=== PATIENT | female | born 1945 | race Caucasian/White ===

== ENCOUNTER 2019-03-17 07:07 | Day surgery (SDC) | payer MEDICARE, BC, SELFPAY ==
--- NOTE | 2019-03-16 11:51 | W.PIPPEYE ---
History of Present Illness Chief Complaint: Progressive decreased vision, right eye Narrative: Patient is a 73-year-old lady with history of open-angle glaucoma who has previously undergone corneal refractive surgery 20 years ago. She presents with complaints of progressive decreased vision in both eyes at both distance and near, right eye worse than left. She notes the right eye is significantly more cloudy than the left and has difficulty driving at night due to glare. On examination she was noted to have bilateral nuclear and cortical cataracts. The option of cataract surgery was offered to patient and she wished to proceed. In addition, the option of a trabecular micro-bypass stent at the time of cataract surgery if the anatomy is favorable was offered to the patient and she wished to proceed with this as well. NOTE: The Chief Complaint, HPI, Past Medical History, Past Surgical History, Family History, Social History, Medications, and complete Ophthalmic Exam with detailed Assessment and Plan have already been documented in the patient's outpatient ophthalmic record and are not covered again in detail here. PFSH Medical History Allergic rhinitis (Acute) Aneurysm (Acute) Back pain (Acute) Detached retina (Acute) Eczema (Acute) HLD (hyperlipidemia) (Acute) History of knee sprain (Acute) Myofascial pain syndrome (Acute) Osteopenia (Acute) RLS (restless legs syndrome) (Acute) Recurrent UTI (urinary tract infection) (Acute) TMJ (temporomandibular joint disorder) (Acute) Anxiety (Chronic) Depression (Chronic) GERD (gastroesophageal reflux disease) (Chronic) History of hysterectomy (Chronic) Obesity (Chronic) Osteoarthritis (Chronic) Surgical History History of left hip replacement (Acute) History of surgical removal of ganglion cyst (Acute) Hx of cystoscopy (Acute) Hx of foot surgery (Acute) Hx of neck surgery (Acute) History of hip replacement (Chronic) Family History Father Emphysema, unspecified Stroke Mother Cancer Social History Smoking/Tobacco Use Status: Former Tobacco Use Alcohol Intake: current Alcohol Intake frequency: 0-2 drinks per day Alcohol type: wine Drug use: Never Substance use type: does not use Details: Quit smoking 2015 Do you feel safe at home: Yes Meds Home Medications Medication Instructions Recorded Confirmed Type alprazolam [Xanax] 1 mg PO HS PRN 03/14/19 03/14/19 History ascorbic acid (vitamin C) [Vitamin 1 g PO DAILY 03/14/19 03/14/19 History C] aspirin [Aspir-81] 81 mg PO DAILY 03/14/19 03/14/19 History atorvastatin 80 mg PO QHS 03/14/19 03/14/19 History bupropion HCl 150 mg PO QAM 03/14/19 03/14/19 History cholecalciferol (vitamin D3) 4,000 unit PO DAILY 03/14/19 03/14/19 History [Vitamin D3] conjugated estrogens [Premarin] 03/14/19 History ibuprofen 600 mg PO TID PRN 03/14/19 03/14/19 History triamcinolone acetonide TOPICAL BID 03/14/19 History Allergies Allergy/AdvReac Type Severity Reaction Status Date / Time atorvastatin [From Lipitor] AdvReac Other (See Verified 03/15/19 09:53 Comment) diazepam [From Valium] AdvReac Other (See Verified 03/15/19 09:53 Comment) pravastatin AdvReac Other (See Verified 03/15/19 09:53 Comment) Exam OCULAR EXAM:: Most recent ocular examination is significant for uncorrected visual acuity of 20/40 OD, 20/60 OS. Intraocular pressure is 13 OD, 14 OS. Extraocular motility is normal. Slit-lamp examination is significant for pupils dilating to 5 mm OU. 2+ nuclear 2+ cortical cataract OU. Dilated funduscopic examination is significant for disc cupping of 0.8 OU. The vessels, macula, peripheral retina and vitreous is normal OU. BRIGHTNESS ACUITY TESTING (BAT):: Brightness acuity testing of right eye off is 20/40. Low is 20/50. Medium is 20/60. On high is 20/70. Assessment and Plan (1) Nuclear sclerotic cataract of right eye: Current visit: No Status: Acute Assessment: Visually significant cataract, right eye. Plan: Cataract extraction with intraocular lens implantation, right eye (2) Cortical cataract of right eye: Current visit: No Status: Acute Assessment: Visually significant cataract, right eye. Plan: Cataract extraction with intraocular lens implantation, right eye Note: NOTE:: The details of the planned surgery, including the risks, indications,limitations,expectations,outcome and possible complications were explained to the patient. The patient understands the complications including, but not limited to: infection, hemorrhage, posterior dislocation of the lens or nuclear fragments which may require the intervention of a vitreoretinal surgeon, possible loss of the eye, or from anesthetic complications. The patient has been made aware of the option of not having surgery, that vision following surgery may not be equal to that prior to surgery, and that the planned surgery may not achieve the intended results. Following this discussion, which the patient appeared to understand, the patient wishes to proceed with cataract surgery with lens implantation of the affected eye to improve and maximize vision.
--- NOTE | 2019-03-17 07:07 | W.PM.DSUDISC ---
Discharge Plan Disposition Patient Disposition: HOME Condition: Stable Discharge Details Attending Provider: Russ Martinez Home Meds and New Rx's Prescriptions: No Action atorvastatin 80 mg Tablet 80 mg PO QHS RF: 0 ascorbic acid (vitamin C) [Vitamin C] 1,000 mg Tablet 1 g PO DAILY RF: 0 alprazolam [Xanax] 1 mg Tablet 1 mg PO HS PRNRF: 0 aspirin [Aspir-81] 81 mg Tablet,Delayed Release (Dr/Ec) 81 mg PO DAILY RF: 0 triamcinolone acetonide 0.1 % Cream topical BID RF: 0 Premarin 0.625 mg/gram Cream RF: 0 ibuprofen 600 mg Tablet 600 mg PO TID PRNRF: 0 bupropion HCl 150 mg Tablet Extended Release 24 Hr 150 mg PO QAM RF: 0 cholecalciferol (vitamin D3) [Vitamin D3] 2,000 unit Capsule 4,000 unit PO DAILY RF: 0 Discharge Instructions Stand Alone Forms: Post-op Topical Cataract, Alberto Bower (DSU) Discharge Orders Discharge Orders: Discharge Order (Routine); Ordered 03/17/19 Ordered By: Russ Martinez DS: Diagnosis Discharge Diagnosis (1) Nuclear sclerotic cataract of right eye: Status: Resolved (2) Cortical cataract of right eye: Status: Resolved (3) Status post cataract extraction and insertion of intraocular lens of right eye: Status: Chronic
[2019-03-17 07:10] VITALS: BP 135/70; PULSE 50; RESP 18; TEMP 36.5
[2019-03-17] MEDS: Tetracaine 0.5% 4 ML BTL OD ×4 (07:20→08:17)
[2019-03-17] MEDS: Tropicam./Phenyleph. (1/2.5%) 5 ML BTL OD ×3 (07:20→07:37)
[2019-03-17] MEDS: Lidocaine 2% Jelly 6 ML SYR (08:17)
[2019-03-17] MEDS: Povidone-Iodine Ophth 30 ML BTL (08:17)
[2019-03-17] MEDS: Balanced Salt Soln.-PLUS 500 ML BAG (08:26)
[2019-03-17] MEDS: Lidocaine 1% Pres-Free 5 ML VIAL (08:27)
--- NOTE | 2019-03-17 09:00 | W.PM.OP ---
Date of service: 03/17/19 Time of Service: 09:00 Operative Note DATE OF PROCEDURE: 03/17/19 PRE-OP DIAGNOSIS: Cataract, with open angle glaucoma right eye POST-OP DIAGNOSIS: same PROCEDURE: 1. Cataract extraction using phacoemulsification with intraocular lens implant, right eye 2. Insertion of multiple anterior segment aqueous drainage devices (Gl[employer]kos iStent inject x 1) into trabecular meshwork, right eye SURGEON: Russ Martinez ANESTHESIA: MAC and local (sub-tenon's anesthetic infiltration) PATHOLOGY: none sent COMPLICATIONS: None Patient was transported to: same day Patient's condition: stable Implants: 1. Alcides [employer] Al[employer] / [employer] Tecnis ZCB00 intraocular lens 2. Glaukos iStent inject trabecular micro-bypass stent x 1 Indications: 1. Progressive decreased vision due to cataract, right eye 2. Primary open angle glaucoma, right eye Procedure Description: CATARACT SURGERY OPERATIVE REPORT PREOPERATIVE DIAGNOSIS: Nuclear/cortical cataract, right eye Primary open-angle glaucoma, right eye, severe stage Status post myopic LASIK POSTOPERATIVE DIAGNOSIS: Same OPERATION: 1. Cataract extraction using phacoemulsification with posterior chamber intraocular lens implant, right eye. 2. Insertion of multiple anterior segment aqueous drainage devices (Glaukos iStent inject x 1) into trabecular meshwork, right eye IOL: IOL Integrated Circuit Fabricator/Model: [employer] Vision / ENMANUEL Tecnis ZCB00 IOL Power: + 21.0 diopters IOL Serial Number: [id number] Optic Diameter: 6.0mm Haptic/Overall Diameter: 13.0mm PHACO INFO: Rl [employer] Vision System with OZil and Active Fluidics Cumulative Dispersed Energy (CDE): 10.27 seconds TRABECULAR MICRO-BYPASS STENT INFO: Glaukos iStent inject x 1 Reference Number: G2 M IS Serial Number: [id number] SURGEON: Russ Martinez MD, NAKUL ANESTHESIA: Monitored Anesthesia Care (MAC), with local sub-tenon's anesthetic infiltration COMPLICATIONS: None SPECIMENS: None INDICATIONS FOR PROCEDURE: The patient is a 73-year-old lady with history of myopia who has previously undergone LASIK vision correction. She also has a history of primary open-angle glaucoma, severe stage, on one medication. She has developed symptomatic nuclear and cortical cataract and desires cataract surgery and attempt to improve and maximize her vision. In addition, the option of trabecular micro-bypass stent at the time of cataract surgery was offered to the patient and she wished to proceed. PROCEDURE: The correct surgical eye was identified and marked as the right eye and the pupil was dilated in the preoperative area using mydriatics and cycloplegics. The dilated pupil size was 7.0 mm. Oral sedation was administered in the form of an Imprimis MKO Melt (midazolam 3mg/ketamine 25mg/ondansetron 2mg). The patient was brought to the operating room where cardiopulmonary monitoring was instituted and surgical time-out was performed, confirming the correct operative eye and IOL power. Topical anesthesia was administered and ophthalmic povidone-iodine 5% was instilled into the conjunctival fornices. Lidocaine gel was applied to the cornea and the zachary-ocular area was prepped with Betadine 10% solution and draped in the usual sterile fashion for intraocular surgery, including an aperture drape. A Tegaderm transparent film dressing was cut in half and used to cover the lashes and lid margins. Care was taken to sequester the lashes and lid margins under the Tegaderm dressing. A lid speculum was placed between the lids of the operative eye and the Alec-Callie operating microscope was maneuvered into position. Bruno scissors were then used to make a conjunctival buttonhole approximately 6mm posterior to the limbus in the inferonasal quadrant. Blunt dissection was carried out to expose bare sclera, and a blunt-tipped sub-tenon?s anesthesia cannula was introduced and passed posteriorly along the globe where non-preserved plain lidocaine was injected into posterior sub-Tenon?s space. A sideport knife was used to make a paracentesis port in the inferiortemporal position and the anterior chamber was filled with Healon GV. A 2.4mm keratome knife was used to create a half-thickness groove at the limbus and then to construct a three-plane near-clear corneal tunnel extending 2.0mm into clear cornea in the superiortemporal position. . A flap was raised on the anterior capsule and capsulorhexis forceps were used to complete a continuous curvilinear capsulorhexis of 5.0 mm. Balanced salt solution was then used to perform cortical cleaving hydrodissection and nuclear hydrodelineation until the lens could be freely rotated within the capsular bag. The lens nucleus was then disassembled and removed within the capsular bag and iris plane using phacoemulsification. Residual cortical material was removed using the 45-degree angled silicone I/A tip with 0.3mm port. The posterior capsule was carefully polished to remove as much residual lens epithelial cells as safely possible. The capsular bag was then inflated and the anterior chamber deepened with viscoelastic. The lens implant described above was inserted into the capsular bag using the ENMANUEL [place] Injector. A Kuglen hook was used to dial the IOL into position. The anterior chamber was then slightly over-filled with viscoelastic. The microsope and the patient's head were tilted into the ideal position for viewing of the anterior chamber angle. Viscoelastic was placed on the cornea followed by a surgical gonionlens, and the anterior chamber angle landmarks were identified. The [employer] iStent inject handpiece was introduced into the anterior chamber and the insertion sleeve was retracted once the injector was distal to the pupillary margin. The trocar was advanced through the central portion of the trabecular meshwork and into the back wall of Schlemm's canal in the inferonasal quadrant, with care taken to ensure the micro-insertion tube was perpendicular to the trabecular meshwork. The trabecular meshwork was lightly dimpled and the stent was injected,, but it did not deploy from the trocar. Additional viscoelastic was then injected into the angle to clear blood reflux. The stent was then deployed at the 9 o'clock position without difficulty. 2 attempts were made to deploy the second stent, which did not release from the injector, but remained within the sleeve. The first stent was then examined and noted to be in good position within the trabecular meshwork. Good blood reflux was noted through the stent aperture. The stent injector was removed from the eye and examined. The second stent remained on the trocar, confirmed not to be within the eye. The microscope and the patients head were returned to the normal coaxial position. Viscoelatic was then removed from the anterior chamber using the I/A handpiece. The lens implant was noted to center nicely within the capsular bag. The incisions were stromally hydrated, and the anterior chamber was reformed using BSS. Then 0.4cc of moxifloxacin 1.5mg/ml were injected into the capsular bag and anterior chamber. The incisions were checked with a Weck spear and found to be secure. Several drops of ophthalmic povidone-iodine 5% were then applied to the eye followed by two drops of Imprimis combination prednisolone/gatifloxacin/bromfenac solution. The drapes were removed and a clear plastic protective eye shield was placed over the eye. The patient was then returned to Same Day Surgery in stable condition.
--- NOTE | 2019-03-17 09:08 | ROE_ITS ---
Date of service: 03/17/19 Time of Service: 09:00 Operative Note DATE OF PROCEDURE: 03/17/19 PRE-OP DIAGNOSIS: Cataract, with open angle glaucoma right eye POST-OP DIAGNOSIS: same PROCEDURE: 1. Cataract extraction using phacoemulsification with intraocular lens implant, right eye 2. Insertion of multiple anterior segment aqueous drainage devices (Glaukos iStent inject x 1) into trabecular meshwork, right eye SURGEON: Russ Martinez ANESTHESIA: MAC and local (sub-tenon's anesthetic infiltration) PATHOLOGY: none sent COMPLICATIONS: None Patient was transported to: same day Patient's condition: stable Implants: 1. Alcides [employer] / [employer] Tecnis ZCB00 intraocular lens 2. Glaukos iStent inject trabecular micro-bypass stent x 1 Indications: 1. Progressive decreased vision due to cataract, right eye 2. Primary open angle glaucoma, right eye Procedure Description: CATARACT SURGERY OPERATIVE REPORT PREOPERATIVE DIAGNOSIS: Nuclear/cortical cataract, right eye Primary open-angle glaucoma, right eye, severe stage Status post myopic LASIK POSTOPERATIVE DIAGNOSIS: Same OPERATION: 1. Cataract extraction using phacoemulsification with posterior chamber intraocular lens implant, right eye. 2. Insertion of multiple anterior segment aqueous drainage devices (Glaukos iStent inject x 1) into trabecular meshwork, right eye IOL: IOL Raveler/Model: J[employer]J Vision / ENMANUEL Tecnis ZCB00 IOL Power: + 21.0 diopters IOL Serial Number: [id number] Optic Diameter: 6.0mm Haptic/Overall Diameter: 13.0mm PHACO INFO: Rl [employer] Vision System with OZil and Active Fluidics Cumulative Dispersed Energy (CDE): 10.27 seconds TRABECULAR MICRO-BYPASS STENT INFO: Glaukos iStent inject x 1 Reference Number: G2 M IS Serial Number: [id number] US [id number] SURGEON: Russ Martinez MD, NAKUL ANESTHESIA: Monitored Anesthesia Care (MAC), with local sub-tenon's anesthetic infiltration COMPLICATIONS: None SPECIMENS: None INDICATIONS FOR PROCEDURE: The patient is a 73-year-old lady with history of myopia who has previously undergone LASIK vision correction. She also has a history of primary open-angle glaucoma, severe stage, on one medication. She has developed symptomatic nuclear and cortical cataract and desires cataract surgery and attempt to improve and maximize her vision. In addition, the option of trabecular micro- bypass stent at the time of cataract surgery was offered to the patient and she wished to proceed. PROCEDURE: The correct surgical eye was identified and marked as the right eye and the pupil was dilated in the preoperative area using mydriatics and cycloplegics. The dilated pupil size was 7.0 mm. Oral sedation was administered in the form of an Imprimis MKO Melt (midazolam 3mg/ketamine 25mg/ondansetron 2mg). The patient was brought to the operating room where cardiopulmonary monitoring was instituted and surgical time-out was performed, confirming the correct operative eye and IOL power. Topical anesthesia was administered and ophthalmic povidone-iodine 5% was instilled into the conjunctival fornices. Lidocaine gel was applied to the cornea and the zachary-ocular area was prepped with Betadine 10% solution and draped in the usual sterile fashion for intraocular surgery, including an aperture drape. A Tegaderm transparent film dressing was cut in half and used to cover the lashes and lid margins. Care was taken to sequester the lashes and lid margins under the Tegaderm dressing. A lid speculum was placed between the lids of the operative eye and the Aelc-Callie operating microscope was maneuvered into position. Bruno scissors were then used to make a conjunctival buttonhole approximately 6mm posterior to the limbus in the inferonasal quadrant. Blunt dissection was carried out to expose bare sclera, and a blunt-tipped sub-tenon?s anesthesia cannula was introduced and passed posteriorly along the globe where non- preserved plain lidocaine was injected into posterior sub-Tenon?s space. A sideport knife was used to make a paracentesis port in the inferiortemporal position and the anterior chamber was filled with Healon GV. A 2.4mm keratome knife was used to create a half-thickness groove at the limbus and then to construct a three-plane near-clear corneal tunnel extending 2.0mm into clear cornea in the superiortemporal position. . A flap was raised on the anterior capsule and capsulorhexis forceps were used to complete a continuous curvilinear capsulorhexis of 5.0 mm. Balanced salt solution was then used to perform cortical cleaving hydrodissection and nuclear hydrodelineation until the lens could be freely rotated within the capsular bag. The lens nucleus was then disassembled and removed within the capsular bag and iris plane using phacoemulsification. Residual cortical material was removed using the 45-degree angled silicone I/A tip with 0.3mm port. The posterior capsule was carefully polished to remove as much residual lens epithelial cells as safely possible. The capsular bag was then inflated and the anterior chamber deepened with viscoelastic. The lens implant described above was inserted into the capsular bag using the ENMANUEL [place] Injector. A Kuglen hook was used to dial the IOL into position. The anterior chamber was then slightly over-filled with viscoelastic. The microsope and the patient's head were tilted into the ideal position for viewing of the anterior chamber angle. Viscoelastic was placed on the cornea followed by a surgical gonionlens, and the anterior chamber angle landmarks were identified. The [employer] iStent inject handpiece was introduced into the anterior chamber and the insertion sleeve was retracted once the injector was distal to the pupillary margin. The trocar was advanced through the central portion of the trabecular meshwork and into the back wall of Schlemm's canal in the inferonasal quadrant, with care taken to ensure the micro-insertion tube was perpendicular to the trabecular meshwork. The trabecular meshwork was lightly dimpled and the stent was injected,, but it did not deploy from the trocar. Additional viscoelastic was then injected into the angle to clear blood reflux. The stent was then deployed at the 9 o'clock position without difficulty. 2 attempts were made to deploy the second stent, which did not release from the injector, but remained within the sleeve. The first stent was then examined and noted to be in good position within the trabecular meshwork. Good blood reflux was noted through the stent aperture. The stent injector was removed from the eye and examined. The second stent remained on the trocar, confirmed not to be within the eye. The microscope and the patients head were returned to the normal coaxial position. Viscoelatic was then removed from the anterior chamber using the I/A handpiece. The lens implant was noted to center nicely within the capsular bag. The incisions were stromally hydrated, and the anterior chamber was reformed using BSS. Then 0.4cc of moxifloxacin 1.5mg/ml were injected into the capsular bag and anterior chamber. The incisions were checked with a Weck spear and found to be secure. Several drops of ophthalmic povidone-iodine 5% were then applied to the eye followed by two drops of Imprimis combination prednisolone/gatifloxacin/bromfenac solution. The drapes were removed and a cl ear plastic protective eye shield was placed over the eye. The patient was then returned to Same Day Surgery in stable condition.
[2019-03-17 09:35] VITALS: BP 122/64; PULSE 50; RESP 16; TEMP 36.3; O2SAT 98
== END 2019-03-17 09:45 | disposition home or self-care (01) ==
PROVIDERS: Visit Provider Ophthalmology
PROC: (CPT 0191T; principal; 2019-03-17 08:30)
DX: H25.811 Combined forms of age-related cataract, right eye (principal); H40.1113 Primary open-angle glaucoma, right eye, severe stage; K21.9 Gastro-esophageal reflux disease without esophagitis
CPT/HCPCS: 0191T; 66984; V2632; C1783

== ENCOUNTER 2020-10-09 01:10 | Outpatient (CLI) | payer MEDICARE, BC, SELFPAY ==
--- NOTE | 2020-10-09 12:54 | DI.CTLCSR_ITS ---
EXAM: CT CHEST LUNG CANCER SCREEN CLINICAL HISTORY: SCREENING FOR LUNG CA,FORMER SMOKER,[id number] TECHNIQUE: CT examination of the chest was performed utilizing low-dose lung cancer screening protoc ol. COMPARISON: No exams were available for comparison FINDINGS: Images obtained through the upper abdomen show unremarkable appearance of visualized portions of the liver and spleen except for multiple presumed hepatic cysts, the largest in the right hepatic lobe m easuring 3 cm greatest diameter. Visualized portions of pancreas, adrenals, and kidneys appear intac t. Note is made of coronary artery calcification.. There is no mediastinal or hilar adenopathy. Mediastinal vascular structures appear intact by noncon trast criteria. Tracheobronchial tree appears intact. No pleural effusion or pleural-based mass. There is moderate central lobular emphysema. The lungs are clear with no significant intrapulmonary nodule identified. IMPRESSION: Negative LD CT of the chest. Continue annual screening with LD CT in 12 months. RADIATION DOSE DELIVERED: LINK-TO-SR Total DLP 75.71mGy.cm Total DLP
== END 2020-10-09 01:30 ==
PROVIDERS: Visit Provider Family Medicine
DX: Z87.891 Personal history of nicotine dependence (principal)
CPT/HCPCS: 71271; G0297